=== PATIENT | female | born 2000 | race Caucasian/White ===

== ENCOUNTER 2022-01-31 16:20 | Emergency (ER) | payer OTHER, BC ==
[~2022-01-31] VITALS: Ht 157.5 cm; Wt 50.9 kg
[2022-01-31 19:09] VITALS: BP 133/74
== END 2022-01-31 19:12 | disposition home or self-care (01) | DRG 556 ==
LOC: ED 16:20
DX: M25.562 Pain in left knee (principal); M25.561 Pain in right knee; F17.290 Nicotine dependence, other tobacco product, uncomplicated; V43.52XA Car driver injured in collision with other type car in traffic accident, initial encounter